=== PATIENT | female | born 1945 | race Caucasian/White ===

== ENCOUNTER 2019-04-21 07:19 | Day surgery (SDC) | payer OTHER ==
[2019-04-20 11:37] VITALS: BMI 30.5
[2019-04-21] MEDS ORDERED: PROPOFOL 20 ML ONE ×4 (09:14→09:15)
[2019-04-21] MEDS ORDERED: SUCCINYLCHOLINE CHLORIDE 200 MG/10 ML SYRINGE ONE (09:15)
[2019-04-21] MEDS ORDERED: ROCURONIUM BROMIDE 50 MG/5 ML SYRINGE ONE (09:15)
[2019-04-21] MEDS ORDERED: MIDAZOLAM HCL 2 MG/2 ML SINGLE DOSE VIAL ONE (09:15)
[2019-04-21] MEDS ORDERED: ceFAZolin 2 GRAM PREMIX BAG IVPB ONE (09:30)
[2019-04-21] MEDS ORDERED: LIDOCAINE HCL 1%, 10 MG/ML (20ML VIAL) ONE (09:35)
[2019-04-21] MEDS ORDERED: LIDOCAINE HCL 1%, 10 MG/ML (20ML VIAL) NR ONE (09:36)
[2019-04-21] MEDS ORDERED: DEXAMETHASONE SOD PHOSPHATE 4 MG/1 ML VIAL ONE (09:55)
[2019-04-21] MEDS ORDERED: LIDOCAINE HCL/PF 2% SDV 5ML VIAL ONE (09:55)
[2019-04-21] MEDS ORDERED: oxyCODONE HCL 5 MG TABLET PO PRN ×2 (10:22)
[2019-04-21] MEDS ORDERED: ONDANSETRON 4 MG/2 ML VIAL IVPUSH PRN (10:22)
[2019-04-21] MEDS ORDERED: PROMETHAZINE HCL 25 MG/1 ML VIAL IVPB PRN (10:22)
--- NOTE | 2019-04-21 10:41 | OP ---
Operative Note - Note: Operative Date: 04/21/19 Pre-Operative Diagnosis: Stress incontinence cystocele Operation: Cystocele repair Mid urethral sling placement Findings: cystocele incontinence Post-Operative Diagnosis: Same as Pre-op Anesthesia: General Specimens Removed: Portion anterior vaginal wall Operative Report Dictated: Yes
[2019-04-21] MEDS ORDERED: ELECTROLYTE-148 SOLN 1,000 ML IV SCH (10:45)
[2019-04-21 11:41] VITALS: BP 144/66; PULSE 63; TEMP 97.3
--- NOTE | 2019-04-21 16:29 | OP ---
DATE OF OPERATION: 04/21/2019 PREOPERATIVE DIAGNOSIS: Cystocele and stress incontinence. POSTOPERATIVE DIAGNOSIS: Cystocele and stress incontinence. PROCEDURE PERFORMED: Cystocele repair and mid-urethral sling placement. SURGEON: Adrian Pal MD HISTORY: This is a very pleasant 74-year-old female with a long history of cystocele and stress incontinence. Preoperative evaluation confirmed on urodynamics. After discussing the treatment options, the patient elected to undergo the above-stated procedure. The risks, benefits and treatments alternative were discussed in detail. All questions were answered. Of note, the patient also has a posterior, -looking mucosal rift that she claims had happened after delivery in [place]. It was discussed with the patient that this would not be addressed and this would be a [employer]ITY [employer] issue that she could address at a later date. DESCRIPTION OF PROCEDURE: The patient was brought to the operating room and placed in the supine position. Once general anesthesia was administered, the patient was transferred to the dorsal lithotomy position, and prepped and draped in standard sterile fashion. Intravenous antibiotics were given. At this time, a Hodges was placed to suction and then straight drainage. Using approximately 8 mL of 2% lidocaine, an area approximately 1 cm proximal to the meatus was anesthetized and a hydrodistention plane was created. At this time a 15 blade was used to make an approximately 1.5 cm transverse incision approximately 1 cm proximal to the meatus. The anterior vaginal fascia was dissected off of the periurethral and bladder tissue. The tissue was taken back to the area of the bladder neck and trigone. Two 2-0 Vicryl sutures were used to imbricate the cystocele tissue. The excess vaginal tissue was given off as a specimen. At this time the Darinel sling was then placed in standard fashion through the obturator foramen bilaterally. This was without difficulty. The mid-urethral sling laid flat, in normal position. At this time there was minimal oozing and no evidence of active bleeding. The anterior vaginal wall was closed using 2-0 Vicryl in a running fashion. The Hodges was left to straight drainage. An Iodoform vaginal pack was then placed. The patient was brought to the recovery room in stable and satisfactory condition. ADRIAN PAL M.D. CRISTINA/[id number]
--- NOTE | 2019-04-22 16:15 | PATH ---
Surgical Pathology Report Patient Name: PRINCE MURPHY Med. Rec. #: [id number] /Age/Gender: 1945 (Age: 74) / F Account: [id number] Location: [facility] Taken: 04/21/2019 Received: 04/21/2019 Reported: 04/22/2019 Physicians: Adrian Pal M.D. Specimen(s) Received PORTION OF ANTERIOR VAGINAL WALL Clinical History Stress incontinence Final Diagnosis PORTION OF ANTERIOR VAGINAL WALL, EXCISION: PORTION OF SQUAMOUS MUCOSA WITH FOCAL CHRONIC INFLAMMATION. Electronically Signed Annette Khan M.D. Gross Description Received in formalin labeled "portion of anterior vaginal wall," is a 1.8 x 1.1 x 0.9 cm mendenhall, unoriented portion of soft tissue, consistent with a portion of vaginal mucosa. The specimen is trisected and entirely submitted in one cassette. DL/04/21/2019 saudi04/21/2019
== END 2019-04-21 13:18 | disposition home or self-care (01) ==
LOC: JASU-SURG 07:19
PROVIDERS: ATTEND Urology
PROC: 0JQC0ZZ Repair Pelvic Region Subcutaneous Tissue and Fascia, Open Approach (ICD-10-PCS; principal; 2019-04-21 09:00)
PROC: 0TSD0ZZ Reposition Urethra, Open Approach (ICD-10-PCS; 2019-04-21 09:00)
DX: N39.3 Stress incontinence (female) (male) (principal); N81.10 Cystocele, unspecified
CPT/HCPCS: 57240; 57288; C1781; 88305-TC; 94760